=== PATIENT | male | born 1950 | race Caucasian/White ===

== ENCOUNTER 2017-11-06 21:36 | Emergency (ER) | payer MEDICARE, OTHER ==
--- NOTE | 2017-11-06 21:49 | EDM.PDOC ---
ED HPI GENERAL MEDICAL PROBLEM - General Chief Complaint: Upper Extremity Injury/Pain Stated Complaint: THUMB ON RT HAND SWOLLEN Time Seen by Provider: 11/06/17 21:40 - History of Present Illness INITIAL COMMENTS - FREE TEXT/NARRATIVE: HISTORY AND PHYSICAL: History of present illness: Patient is a 67-year-old male with no significant past medical history who presents to the ED with complaints of pain and swelling to his right thumb for the last 2 days. Patient tells me that he had an ingrown nail at the medial aspect of his fingernail that he tried to extract several days ago and then noticed progressive redness and swelling since that time. He's noticed some redness going up into his hand. He's had no systemic complaints of fevers chills nausea and vomiting and no other extremity complaints and the remainder of the digits and wrist or forearm on the right side. The patient has taken one dose of ibuprofen yesterday and says he is having pain currently. The patient denies any direct trauma to the area other than his interaction with his fingernail an ingrown nail Review of systems: As per history of present illness and below otherwise all systems reviewed and negative. Past medical history: As per history of present illness and as reviewed below otherwise noncontributory. Surgical history: As per history of present illness and as reviewed below otherwise noncontributory. Social history: No reported history of drug or alcohol abuse. Family history: As per history of present illness and as reviewed below otherwise noncontributory. Physical exam: General: Well-developed well-nourished man who is nontoxic and ambulatory in the ED. Vital signs are noted by me HEENT: Atraumatic, normocephalic, , negative for conjunctival pallor or scleral icterus, mucous membranes moist, throat clear, neck supple, nontender, trachea midline. Lungs: Clear to auscultation, breath sounds equal bilaterally, chest nontender. Heart: S1S2, regular rate and rhythm no overt murmur Abdomen: Soft, nondistended, nontender. NABS Pelvis: Deferred Genitourinary: Deferred. Rectal: Deferred. Extremities: Atraumatic with full range of motion of all extremities with the exception of the right thumb. At the base of the nail diffusely there is redness some minimal soft tissue swelling and fluctuance appreciated at the cuticle margin but the nail and nailbed are intact. The pad of the tuft of the soft tissue is nontender and without erythema and there is some ill-defined erythema traveling up the finger but does not extend into the hand or wrist area. There are no palpable bony deformities and no crepitus. The legs are, negative for cords or calf pain. Neurovascular unremarkable. Neuro: Awake, alert, oriented. Cranial nerves II through XII unremarkable. Cerebellum unremarkable. Motor and sensory unremarkable throughout. Exam nonfocal. Diagnostics: Therapeutics: Banco Bactrim topical let solution bacitracin lidocaine without epinephrine Procedure note: After let was applied to the area of the base of the nail and the procedure was explained to the patient the skin was sensitized with alcohol and using an 11 blade scalpel a small area of the cuticle margin was lifted. There is not much pus expressed and the patient did not tolerate it well due to poor anesthetic results from the let. I subsequently have placed a digital block with 1% lidocaine without epinephrine and reattempted to lift the cuticle from the nailbed and was able to get a small amount of clear fluid but not significant pus expressed. The patient tolerated this better. There were no complications and the patient tolerated the procedure well. Bacitracin and a tube gauze was applied by nursing Impression: Paronychia of right thumb Definitive disposition and diagnosis as appropriate pending reevaluation and review of above. right thumb Pain Score (Numeric/FACES): 10 - Related Data Allergies Allergy/AdvReac Type Severity Reaction Status Date / Time No Known Allergies Allergy Verified 11/06/17 22:04 Home Meds: Home Meds 2 Blood Pressure Medications 11/06/17 [History] Social & Family History - Family History Family Medical History: Noncontributory Review of Systems - Review of Systems Review Of Systems: ROS reveals no pertinent complaints other than HPI. ED EXAM, GENERAL - Physical Exam Exam: See Below (See dictation) Course - Vital Signs Last Recorded V/S: Last Vital Signs Temp 36.4 C 11/06/17 22:02 Pulse 74 11/06/17 22:02 Resp 18 11/06/17 22:02 BP 143/83 H 11/06/17 22:02 Pulse Ox 98 11/06/17 22:02 - Orders/Labs/Meds Meds: Medications Discontinued Medications Generic Name Dose Route Start Last Admin Trade Name Freq PRN Reason Stop Dose Admin Hydrocodone Bitart/Acetaminophen 1 tab 11/06/17 22:10 11/06/17 22:17 Banco 325-5 Mg PO 11/06/17 22:11 1 tab ONETIME ONE Administration Bacitracin 1 dose 11/06/17 22:13 11/06/17 22:41 Bacitracin Oint 1 Gm TOP 11/06/17 22:14 1 dose ONETIME ONE Administration Lidocaine HCl Confirm 11/06/17 22:39 11/06/17 22:42 Xylocaine-Mpf 1% Administered 11/06/17 22:40 Not Given Dose 5 mls @ as directed .ROUTE .STK-MED ONE Lidocaine HCl 5 ml 11/06/17 22:38 11/06/17 22:42 Xylocaine-Mpf 1% INJECT 11/06/17 22:39 5 ml ONETIME ONE Administration Lidocaine/Tetracaine 1 ml 11/06/17 22:10 11/06/17 22:16 Let Soln TOP 11/06/17 22:11 1 ml ONETIME ONE Administration Trimethoprim/Sulfamethoxazole 1 tab 11/06/17 22:10 11/06/17 22:17 Septra Ds PO 11/06/17 22:11 1 tab ONETIME ONE Administration Departure - Departure Time of Disposition: 23:04 Disposition: Home, Self-Care 01 Condition: Good Clinical Impression: Paronychia of thumb, right - Discharge Information Referrals: PCP,None [Primary Care Provider] - Forms: ED Department Discharge Additional Instructions: The following information is given to patients seen in the emergency department who are being discharged to home. This information is to outline your options for follow-up care. We provide all patients seen in our emergency department with a follow-up referral. The need for follow-up, as well as the timing and circumstances, are variable depending upon the specifics of your emergency department visit. If you don't have a primary care physician on staff, we will provide you with a referral. We always advise you to contact your personal physician following an emergency department visit to inform them of the circumstance of the visit and for follow-up with them and/or the need for any referrals to a consulting specialist. The emergency department will also refer you to a specialist when appropriate. This referral assures that you have the opportunity for followup care with a specialist. All of these measure are taken in an effort to provide you with optimal care, which includes your followup. Under all circumstances we always encourage you to contact your private physician who remains a resource for coordinating your care. When calling for followup care, please make the office aware that this follow-up is from your recent emergency room visit. If for any reason you are refused follow-up, please contact the [facility] emergency department at and ask to speak to the emergency department charge nurse. [facility] Primary care- Internal Medicine and Family [address] [address] Please keep the dressing on that was placed here in the ED until tomorrow evening and then removing cleanse with mild soap and water pat dry and apply bacitracin as you choose. Please take all medications prescribed to you as directed and return to ER as needed and as discussed. The redness and inflammation improve over the course of her antibiotics. Please see use over-the -counter ibuprofen/Motrin or Tylenol for pain. Please call and schedule a follow -up appointment with your provider at home one of ours in the clinic for reevaluation and further care
[2017-11-06] MEDS ORDERED: Sulfamethoxazole/Trimethoprim 800-160 MG Tab PO ONE (22:10)
[2017-11-06] MEDS ORDERED: Lidocaine/EPINEPHrine/Tetracaine Soln 1 ML TOP ONE (22:10)
[2017-11-06] MEDS ORDERED: Acetaminophen/HYDROcodone 325-5 MG Tab PO ONE (22:10)
[2017-11-06] MEDS ORDERED: Bacitracin Oint 1 GM U/D Packet TOP ONE (22:13)
== END 2017-11-06 23:25 | disposition home or self-care (01) ==
LOC: MW.ED 21:36
DX: L03.011 Cellulitis of right finger (principal)
CPT/HCPCS: 10060; 99283; A9270